=== PATIENT | male | born 1980 | race Caucasian/White ===

== ENCOUNTER 2018-10-12 11:14 | Emergency (ER) | payer BC, MEDICAID, OTHER ==
[2018-10-12 11:47] VITALS: BP 144/73
--- NOTE | 2018-10-12 12:38 | UC ---
UC General HPI - HPI Summary HPI Summary: Pt presents with c/o gradual on set of palpitations that occur intermittently, intermittent erratic numbness to left arm that radiates from neck down arm to hand. Pt denies MENDOZA, one sided weakness, or difficulty swallowing. Pt denies CP or pressure. Pt reports that he currently quit a high stress job and does state that he is feeling anxious about finding another job. Pt states that he is woken up at night as he is trying to fall asleep by his "palpitations". - History of Current Complaint Chief Complaint: UCGeneralIllness Stated Complaint: NUMBNESS IN LEFT HAND,LIGHTHEADED,DIZZY,SLEEPLESS Time Seen by Provider: 10/12/18 11:42 Hx Obtained From: Patient Onset/Duration: Sudden Onset Timing: Intermittent Episodes Lasting: Onset Severity: Moderate Current Severity: None Pain Intensity: 0 Associated Signs & Symptoms: Positive: Dizziness, Palpitations - Allergy/Home Medications Allergies/Adverse Reactions: Allergies Allergy/AdvReac Type Severity Reaction Status Date / Time No Known Allergies Allergy Verified 10/12/18 11:47 Home Medications: Home Medications NK [No Home Medications Reported] 10/12/18 [History Confirmed 10/12/18] PMH/Surg Hx/FS Hx/Imm Hx Previously Healthy: Yes Psychological History: Anxiety - Surgical History Surgical History: Yes Surgery Procedure, Year, and Place: 9 top teeth removed end of last year - Family History Known Family History: Positive: Cardiac Disease, Seizure Disorder - Social History Occupation: Unemployed Lives: With Family Alcohol Use: None Substance Use Type: None Smoking Status (MU): Former Smoker Length of Time of Smoking/Using Tobacco: smoked appro 20 years When Did the Patient Quit Smoking/Using Tobacco: quit cigarettes year ago, quit vaping 3 days ago Household Exposure Type: Cigarettes - Immunization History Vaccination Up to Date: No Review of Systems All Other Systems Reviewed And Are Negative: Yes Constitutional: Positive: Fatigue Skin: Positive: Negative Eyes: Positive: Negative ENT: Positive: Negative Respiratory: Positive: Negative Cardiovascular: Positive: Palpitations Gastrointestinal: Positive: Nausea - intermittent Genitourinary: Positive: Negative Motor: Positive: Negative Neurovascular: Positive: Negative Musculoskeletal: Positive: Negative Neurological: Positive: Negative Psychological: Positive: Negative Is Patient Immunocompromised?: No Physical Exam Triage Information Reviewed: Yes Appearance: Well-Appearing Vital Signs: Initial Vital Signs Temp 97.7 F 10/12/18 11:36 Pulse 74 10/12/18 11:36 Resp 16 10/12/18 11:36 BP 144/73 10/12/18 11:36 Pulse Ox 100 10/12/18 11:36 Vital Signs Reviewed: Yes Eye Exam: Normal ENT Exam: Normal ENT: Positive: Normal ENT inspection Neck exam: Normal Respiratory Exam: Normal Respiratory: Positive: Normal breath sounds Cardiovascular Exam: Normal Cardiovascular: Positive: RRR, No Murmur, Pulses Normal Musculoskeletal Exam: Normal Neurological Exam: Normal Psychological Exam: Normal Skin Exam: Normal Course/Dx - Course Course Of Treatment: I discussed with the pt the need to establish care iwht his PCP.. I reviewed his EKG with him, discussed when to seek care at an ER and also possible reasons /causes of his palpitations. - Differential Dx - Multi-Symptom Differential Diagnoses: Other - anxiety - Diagnoses Provider Diagnosis: Anxiety, Heart palpitations Discharge - Sign-Out/Discharge Documenting (check all that apply): Patient Departure All imaging exams completed and their final reports reviewed: No Studies - Discharge Plan Condition: Stable Disposition: HOME Patient Education Materials: Heart Palpitations (ED), Paresthesia (ED) Referrals: [facility] [Outside] - As Soon As Possible No Primary Care Phys,NOPCP [Primary Care Provider] - Additional Instructions: Please establish care with a PCP as soon as possible. - Billing Disposition and Condition Condition: STABLE Disposition: Home
== END 2018-10-12 12:53 | disposition home or self-care (01) ==
LOC: UCCORT 11:14
DX: F41.9 Anxiety disorder, unspecified (principal); R00.2 Palpitations; R20.2 Paresthesia of skin; R42 Dizziness and giddiness; Z87.891 Personal history of nicotine dependence
CPT/HCPCS: 93005; 99201; G0463